=== PATIENT | female | born 1995 | race Caucasian/White ===

== ENCOUNTER → 2016-12-15 | Outpatient (CLI) | payer MEDICAID ==
--- NOTE | 2016-12-15 18:03 | DX ---
Chest and Left RIBS, 3 Views HISTORY: Left rib pain, R07.81. FINDINGS: Cardiac silhouette within normal range. No pneumonia, pleural effusion or pneumothorax. Left ribs demonstrate no definite fracture. No clavicle fracture. IMPRESSION: 1. No definite left rib fracture. 2. No acute pulmonary disease. 3. No pneumothorax.
== END ==
LOC: FIMAGING 19:53
PROVIDERS: ATTEND Physician Assistant
DX: R07.81 Pleurodynia (principal)

== ENCOUNTER 2017-08-19 10:13 | Emergency (ER) | payer MEDICAID ==
[2017-08-19 10:54] LABS: COLOR YELLOW; LEUKOCYTE ESTERASE,URINE 2+ (NEGATIVE); NITRITE,URINE NEGATIVE (NEGATIVE)
--- NOTE | 2017-08-19 11:48 | EDPHY ---
H & P Stated Complaint: Blood in urine, UTI symptoms, Abdominal Pain Source: Patient Exam Limitations: No limitations - Personal History LMP (Females 10-55): 8-14 Days Ago Current Tetanus Diphtheria and Acellular Pertussis (TDAP): Yes Tetanus Vaccine Date: Unsure of date - Medical/Surgical History Hx Asthma: Yes Hx Chronic Respiratory Disease: No Hx Diabetes: No Hx Cardiac Disease: Yes Hx Renal Disease: No Hx Cirrhosis: No Hx Alcoholism: No Hx HIV/AIDS: No Hx Splenectomy or Spleen Trauma: No Other PMH: bipolar, fainting episodes. one seizure a year ago. - Social History Smoking Status: Never smoked Time Seen by Provider: 08/19/17 11:47 HPI/ROS: HPI: This is a 22-year-old female presents with Chief Complaint:Blood in urine, UTI symptoms Location: Quality: Blood in urine Duration: 1-2 days Signs and Symptoms: No fever, no back pain, no chills, + dysuria, + urinary frequency, + urinary hesitancy, no vaginal bleeding, no vaginal discharge Timing: Sudden, gradually worsening Severity: [id number] Context: Patient presents with complaints of 2 days ago having urinary frequency that woke her up in the middle the evening and this morning she noted blood in her urine accompanied by burning with urination and urinary frequency. No history of kidney stones. LMP: 8-14 days ago. Has not had sexual intercourse in the last 2-3 days. Her last urinary tract infection was approximately 1-2 years ago. She is eating and drinking normally. She was diagnosed with ovarian cyst within the last several years but denies any abdominal pain/nausea/vomiting/diarrhea. Modifying Factors: Drinking plenty of fluids Comment: ROS: see HPI Constitutional: No fever, no chills, no weight loss Eyes: No blurred vision Respiratory: No shortness of breath, no cough Cardiovascular: No chest pain Gastrointestinal: No nausea, no vomiting, no diarrhea Genitourinary: No dysuria Extremities: No myalgias Neurologic: No weakness, no numbness Skin: No rashes Hematologic: No bruising, no bleeding MEDICAL/SURGICAL/SOCIAL HISTORY: bipolar, fainting episodes, one seizure a year ago. Surgical history: Appendectomy Social history: Employed, works at the [employer] CONSTITUTIONAL: Well-appearing young adult white female, awake and alert, no obvious distress HEENT: Atraumatic and normocephalic, PERRL, EOMI. Tympanic membranes clear. Oropharynx clear, no exudate and moist pink mucosa. Airway patent. No lymphadenopathy. No meningismus. Cardiovascular: Normal S1/S2, regular rate, regular rhythm, without murmur rub or gallop. PULMONARY/CHEST: Symmetrical and nontender. Clear to auscultation bilaterally. Good air movement. No accessory muscle usage. ABDOMEN: Soft, nondistended, nontender, no rebound, no guarding, no peritoneal signs, no masses or organomegaly. No CVAT. EXTREMITIES: 2/2 pulses, no deformities, no clubbing, no cyanosis or edema. NEUROLOGICAL: no focal neuro deficits. GCS 15. SKIN: Warm and dry, no erythema. no rash. Good capillary refill. (Ananya Ron) Constitutional: Initial Vital Signs Temperature (C) 36.6 C 08/19/17 10:15 Heart Rate 94 08/19/17 10:15 Respiratory Rate 20 08/19/17 10:15 Blood Pressure 113/72 08/19/17 10:15 O2 Sat (%) 96 08/19/17 10:15 O2 Delivery Mode Room Air Allergies/Adverse Reactions: No Known Allergies Allergy (Verified 08/19/17 10:17) Home Medications: Medication Instructions Recorded Sulfamethox/Tmp 800/160 mg 1 tab PO BID #13 tab 08/19/17 [Bactrim Ds] Medical Decision Making ED Course/Re-evaluation: UA shows infection; sent for culture; Bactrim and Pyridium given Afebrile. No systemic signs. Abdominal exam is benign No signs to indicate pyelonephritis/PID/ovarian torsion. Will treat as outpatient (Ananya Ron) Differential Diagnosis: Dysuria differential includes urinary tract infection, pyelonephritis, nephrolithiasis, ovarian cyst, appendicitis. (Ananya Ron) Other Provider: The patient was evaluated and managed by the Physician Forming Department Supervisor/ Nurse Practitioner. My co-signature indicates that I have reviewed this chart and I agree with the findings and plan of care as documented. I am the secondary supervising physician. (Rosa Blanco) - Data Points Medications Given: Discontinued Medications Phenazopyridine HCl (Pyridium) 200 mg PO EDNOW ONE Stop: 08/19/17 12:08 Last Admin: 08/19/17 12:10 Dose: 200 mg Trimethoprim/Sulfamethoxazole (Bactrim Ds) 1 ea PO EDNOW ONE PRN Reason: Protocol Stop: 08/19/17 12:07 Last Admin: 08/19/17 12:10 Dose: 1 ea Departure - Departure Disposition: Home, Routine, Self-Care Clinical Impression: Lower urinary tract infection, acute Condition: Good Instructions: Sulfamethoxazole/Trimethoprim (By mouth), Phenazopyridine (By mouth), Urinary Tract Infection in Women (ED) Additional Instructions: Please drink plenty of fluids to prevent dehydration. Take all antibiotics as directed until complete. Avoid sexual intercourse until infection has been treated. At any time he develops a fever, lower back pain, intractable nausea and vomiting; please return to the emergency room immediately. You may establish primary care at [facility]. Referrals: [facility],. [Clinic] - As per Instructions Stand Alone Forms: Work Excuse Prescriptions: Sulfamethox/Tmp 800/160 mg [Bactrim Ds] 1 tab PO BID #13 tab
[2017-08-19 12:00] LABS: BACTERIA 1+ /hpf (NONE SEEN); RBC,URINE 50-182 /hpf (0-3); WBC,URINE 50-182 /hpf (0-3)
[2017-08-19 12:01] LABS: MUCUS TRACE /lpf (NONE-1+)
[2017-08-19] MEDS ORDERED: SULFAMETHOX/TMP 800/160 MG 1 TAB PO ONE (12:06)
[2017-08-19] MEDS ORDERED: PHENAZOPYRIDINE HCL 200 MG TAB PO ONE (12:07)
[2017-08-19 12:08] VITALS: BP 123/67; PULSE 69; RESP 18; TEMP 98.8; O2SAT 97
== END 2017-08-19 12:18 | disposition home or self-care (01) ==
DX: N39.0 Urinary tract infection, site not specified (principal); B96.89 Other specified bacterial agents as the cause of diseases classified elsewhere